=== PATIENT | male | born 1950 | race Caucasian/White ===

== ENCOUNTER → 2016-08-26 | Outpatient (CLI) | payer OTHER ==
[~2016-08-26] VITALS: Ht 180.3 cm; Wt 117.0 kg
[~2016-08-26] MED LIST: ATOR1TAB18 PO; METF500T PO; NS 1,000 ML IV SCH; PROPOFOL 200 MG/20 ML VIAL As Ordered ONE; TYLE650T35 PO
--- NOTE | 2016-08-26 14:15 | ROOR ---
Patient Name: Jordy Pulido Procedure Date: 08/26/2016 1:45 PM Date of : 1950 Age: 65 Room: [facility] Gender: Male Note Status: Finalized Procedure: Colonoscopy to Cecum + Cold Snare Polypectomy + Hemoclips Indications: High risk colon cancer surveillance: Personal history of colonic polyps, Last colonoscopy: 2010 Providers: Chirag Root MD Referring MD: GERALD SUBRAMANIAN MD Requesting Provider: Medicines: Monitored Anesthesia Care Complications: No immediate complications. Procedure: Pre-Anesthesia Assessment: - The heart rate, respiratory rate, oxygen saturations, blood pressure, adequacy of pulmonary ventilation, and response to care were monitored throughout the procedure. The Colonoscope was introduced through the anus and advanced to the cecum, identified by appendiceal orifice and ileocecal valve. The colonoscopy was performed without difficulty. The patient tolerated the procedure well. The quality of the bowel preparation was good. Findings: The perianal and digital rectal examinations were normal. Non-bleeding internal hemorrhoids were found during retroflexion. The hemorrhoids were mild, small and Grade I (internal hemorrhoids that do not prolapse). Scattered small-mouthed diverticula were found in the recto-sigmoid colon, in the sigmoid colon and in the descending colon. A medium polyp was found in the mid ascending colon. The polyp was sessile. The polyp was removed with a cold snare. Resection and retrieval were complete. To prevent bleeding after the polypectomy, three hemostatic clips were successfully placed (MR conditional). There was no bleeding at the end of the procedure. The exam was otherwise without abnormality on direct and retroflexion views. Impression: - Non-bleeding internal hemorrhoids. - Diverticulosis in the recto-sigmoid colon, in the sigmoid colon and in the descending colon. - One medium polyp in the mid ascending colon, removed with a cold snare. Resected and retrieved. Clips (MR conditional) were placed. - The examination was otherwise normal on direct and retroflexion views. - The exam was otherwise normal to the cecum. Recommendation: - Patient has a contact number available for emergencies. The signs and symptoms of potential delayed complications were discussed with the patient. Return to normal activities tomorrow. Written discharge instructions were provided to the patient. - High fiber diet. - Discharge patient to home. - Continue present medications. - Await pathology results. - Telephone GI clinic for pathology results in 1 week. - Repeat colonoscopy for surveillance based on pathology results. - Return to referring physician. - The findings and recommendations were discussed with the patient's family. Chirag Root MD Chirag Root MD 08/26/2016 2:15:09 PM This report has been signed electronically. Number of Addenda: 0 Note Initiated On: 08/26/2016 1:45 PM Estimated Blood Loss: Estimated blood loss: none.
[2016-08-26 14:40] VITALS: BP 140/70
== END | disposition home or self-care (01) ==
LOC: M OPP 12:35
PROVIDERS: ATTEND Internal Medicine Gastroenterology
DX: Z12.11 Encounter for screening for malignant neoplasm of colon (principal); K64.0 First degree hemorrhoids; K57.30 Diverticulosis of large intestine without perforation or abscess without bleeding; D12.2 Benign neoplasm of ascending colon; I10 Essential (primary) hypertension; G98.8 Other disorders of nervous system; Z79.84 Long term (current) use of oral hypoglycemic drugs; Z79.899 Other long term (current) drug therapy

== ENCOUNTER → 2017-03-25 | Outpatient (REF) | payer OTHER ==
[~2017-03-25] MED LIST changes: -ATOR1TAB18 PO; +ATOR80TA59 PO; -METF500T PO; +METF500T13 PO; -NS 1,000 ML IV SCH; -PROPOFOL 200 MG/20 ML VIAL As Ordered ONE
[2017-03-25 11:37] LABS: ALBUMIN/GLOBULIN RATIO 1.25 (1.00-1.93); ALKALINE PHOSPHATASE 101 U/L (45-117); ALT/SGPT 56 U/L (12-78); ANION GAP 7 MEQ/L (8-16); AST/SGOT 26 U/L (15-37); BILIRUBIN,TOTAL 0.8 MG/DL (0.2-1.0); BLOOD UREA NITROGEN 15 MG/DL (7-18); CALCIUM LEVEL 8.4 MG/DL (8.8-10.2); CARBON DIOXIDE LEVEL 26 MEQ/L (21-32); CHLORIDE LEVEL 106 MEQ/L (98-107); CHOLESTEROL LEVEL 193 MG/DL (<200); CREATININE FOR GFR 0.92 MG/DL (0.70-1.30); GLOMERULAR FILTRATION RATE > 60.0 (>49); GLUCOSE, FASTING 118 MG/DL (80-110); POTASSIUM SERUM 4.3 MEQ/L (3.5-5.1); SODIUM LEVEL 139 MEQ/L (136-145); TOTAL PROTEIN 7.2 GM/DL (6.4-8.2); TRIGLYCERIDES LEVEL 322 MG/DL (<150)
[2017-03-25 11:46] LABS: ERYTHROCYTE SEDIMENTATION RATE 3 mm/hr (0-20)
[2017-03-25 16:40] LABS: BASO # 0.1 K/mm3 (0.0-0.2); BASO % 1.2 % (0.0-1.0); EOS # 0.2 K/mm3 (0.0-0.50); EOS % 2.7 % (0.0-3.0); LARGE UNSTAINED CELL # 0.2 K/mm3 (0.0-0.4); LARGE UNSTAINED CELL % 2.8 % (0.0-4.0); LYMPH % 33.1 % (24.0-44.0); MEAN CORPUSCULAR HGB CONC 35.6 g/dl (32.0-36.5); MEAN CORPUSCULAR VOLUME 89.7 fl (80.0-96.0); MONO # 0.6 K/mm3 (0.0-0.8); MONO % 10.3 % (0.0-5.0); NEUTROPHILS # 2.8 K/mm3 (1.8-7.7); NEUTROPHILS % 49.9 % (36.0-66.0); PLATELET COUNT, AUTOMATED 142 k/mm3 (150-450); RED CELL DISTRIBUTION WIDTH 12.8 % (11.5-14.5); WHITE BLOOD COUNT 5.6 K/mm3 (4.0-10.0)
== END ==
LOC: M LABDRAW1 10:52
PROVIDERS: ATTEND Emergency Medicine
DX: M15.0 Primary generalized (osteo)arthritis (principal); R73.01 Impaired fasting glucose; E78.2 Mixed hyperlipidemia; E11.9 Type 2 diabetes mellitus without complications; I67.89 Other cerebrovascular disease

== ENCOUNTER → 2017-12-04 | Outpatient (CLI) | payer OTHER ==
[2017-12-04 06:58] LABS: BASO # 0.1 10^3/uL (0.0-0.2); BASO % 1.1 % (0.0-1.0); EOS # 0.2 10^3/uL (0.0-0.50); EOS % 2.7 % (0.0-3.0); HEMOGLOBIN 16.3 g/dl (13.5-17.5); IMMATURE GRANULOCYTE % 0.3 % (0-3.0); LYMPH # 2.3 10^3/uL (1.5-4.5); LYMPH % 33.2 % (24.0-44.0); MEAN CORPUSCULAR HEMOGLOBIN 31.1 pg (27.0-33.0); MEAN CORPUSCULAR HGB CONC 36.2 g/dl (32.0-36.5); MEAN CORPUSCULAR VOLUME 85.9 fl (80.0-96.0); MONO # 0.8 10^3/uL (0.0-0.8); MONO % 11.1 % (0.0-5.0); NEUTROPHILS # 3.6 10^3/uL (1.8-7.7); NEUTROPHILS % 51.6 % (36.0-66.0); PLATELET COUNT, AUTOMATED 157 10^3/uL (150-450); RED BLOOD COUNT 5.24 10^6/uL (4.30-6.10); RED CELL DISTRIBUTION WIDTH 12.2 % (11.5-14.5)
[2017-12-04 07:28] LABS: ALBUMIN 4.2 GM/DL (3.2-5.2); ALBUMIN/GLOBULIN RATIO 1.35 (1.00-1.93); ALKALINE PHOSPHATASE 84 U/L (45-117); ALT/SGPT 57 U/L (12-78); ANION GAP 8 MEQ/L (8-16); AST/SGOT 29 U/L (7-37); BLOOD UREA NITROGEN 13 MG/DL (7-18); CALCIUM LEVEL 8.5 MG/DL (8.8-10.2); CARBON DIOXIDE LEVEL 24 MEQ/L (21-32); CHLORIDE LEVEL 106 MEQ/L (98-107); CHOLESTEROL LEVEL 199 MG/DL (<200); CHOLESTEROL RISK RATIO 5.685 (<5); CREATININE FOR GFR 1.01 MG/DL (0.70-1.30); GLOMERULAR FILTRATION RATE > 60.0 (>49); GLUCOSE, FASTING 114 MG/DL (70-100); HDL CHOLESTEROL 35 MG/DL (>40); LDL CHOLESTEROL 138.6 MG/DL (<100); NON-HDL-C 164 MG/DL; POTASSIUM SERUM 3.9 MEQ/L (3.5-5.1); SODIUM LEVEL 138 MEQ/L (136-145); TOTAL PROTEIN 7.3 GM/DL (6.4-8.2); TRIGLYCERIDES LEVEL 127 MG/DL (<150)
[2017-12-04 07:37] LABS: MALB URINE SIEMENS 13.7 MG/L; MAU/CREAT RATIO 10.4 MCG/MG (0.0-30.0)
[2017-12-04 09:38] LABS: ESTIMATED AVERAGE GLUCOSE 137 MG/DL (60-110); HEMOGLOBIN A1c 6.4 %
== END ==
LOC: M LAB 06:09
DX: E11.9 Type 2 diabetes mellitus without complications (principal); E78.2 Mixed hyperlipidemia; I67.89 Other cerebrovascular disease
CPT/HCPCS: 80053

== ENCOUNTER 2018-07-04 09:14 | Emergency (ER) | payer MEDICARE, OTHER | END 2018-07-04 10:01 | disposition home or self-care (01) | LOC: M ED 09:14 | DX: M25.512 Pain in left shoulder (principal); I10 Essential (primary) hypertension; Z86.73 Personal history of transient ischemic attack (TIA), and cerebral infarction without residual deficits; Z79.01 Long term (current) use of anticoagulants; Z79.899 Other long term (current) drug therapy; Z79.84 Long term (current) use of oral hypoglycemic drugs | CPT/HCPCS: 99283 ==

== ENCOUNTER → 2018-07-08 | Outpatient (CLI) | payer MEDICARE, OTHER ==
[2018-07-08 09:26] LABS: BASO # 0.1 10^3/uL (0.0-0.2); BASO % 1.1 % (0.0-1.0); EOS # 0.2 10^3/uL (0.0-0.50); EOS % 2.6 % (0.0-3.0); HEMATOCRIT 41.4 % (42.0-52.0); HEMOGLOBIN 14.2 g/dl (13.5-17.5); IMMATURE GRANULOCYTE % 0.4 % (0-3.0); LYMPH # 1.6 10^3/uL (1.5-4.5); LYMPH % 22.4 % (24.0-44.0); MEAN CORPUSCULAR HEMOGLOBIN 30.8 pg (27.0-33.0); MEAN CORPUSCULAR HGB CONC 34.3 g/dl (32.0-36.5); MEAN CORPUSCULAR VOLUME 89.8 fl (80.0-96.0); MONO # 0.7 10^3/uL (0.0-0.8); MONO % 9.5 % (0.0-5.0); NEUTROPHILS # 4.7 10^3/uL (1.8-7.7); PLATELET COUNT, AUTOMATED 189 10^3/uL (150-450); RED BLOOD COUNT 4.61 10^6/uL (4.30-6.10); RED CELL DISTRIBUTION WIDTH 12.2 % (11.5-14.5); WHITE BLOOD COUNT 7.3 10^3/uL (4.0-10.0)
[2018-07-08 10:00] LABS: MALB URINE SIEMENS 11.4 MG/L; MAU/CREAT RATIO 6.8 MCG/MG (0.0-30.0)
[2018-07-08 10:10] LABS: ESTIMATED AVERAGE GLUCOSE 137 MG/DL (60-110); HEMOGLOBIN A1c 6.4 %
[2018-07-08 10:17] LABS: ALBUMIN/GLOBULIN RATIO 1.29 (1.00-1.93); ALKALINE PHOSPHATASE 61 U/L (45-117); ALT/SGPT 44 U/L (12-78); ANION GAP 6 MEQ/L (8-16); AST/SGOT 21 U/L (7-37); BILIRUBIN,TOTAL 0.9 MG/DL (0.2-1.0); BLOOD UREA NITROGEN 13 MG/DL (7-18); CALCIUM LEVEL 8.8 MG/DL (8.8-10.2); CARBON DIOXIDE LEVEL 28 MEQ/L (21-32); CHLORIDE LEVEL 104 MEQ/L (98-107); CREATININE FOR GFR 0.92 MG/DL (0.70-1.30); GLOMERULAR FILTRATION RATE > 60.0 (>49); GLUCOSE, FASTING 131 MG/DL (70-100); POTASSIUM SERUM 4.2 MEQ/L (3.5-5.1); PROSTATIC SPECIFIC AG MONITOR 2.5 NG/ML (< 4.0); SODIUM LEVEL 138 MEQ/L (136-145); TOTAL PROTEIN 7.1 GM/DL (6.4-8.2)
== END ==
LOC: M LAB 08:48
DX: E11.69 Type 2 diabetes mellitus with other specified complication (principal); N40.1 Benign prostatic hyperplasia with lower urinary tract symptoms
CPT/HCPCS: 80053

== ENCOUNTER → 2020-02-03 | Outpatient (CLI) | payer MEDICARE, OTHER ==
[~2020-02-03] MED LIST changes: +ACET1TAB37 PO; +ACET650T61 PO; +FLOM0.4C39 PO; +HYDR-3715 PO; +LOSA50TA88 PO; +PLAV1TAB2 PO; -TYLE650T35 PO
[2020-02-03 10:50] LABS: HEMOGLOBIN A1c 6.3 %
[2020-02-03 10:52] LABS: ALBUMIN 4.1 GM/DL (3.2-5.2); ALT/SGPT 42 U/L (12-78); BLOOD UREA NITROGEN 15 MG/DL (7-18); CALCIUM LEVEL 8.9 MG/DL (8.8-10.2); CARBON DIOXIDE LEVEL 26 MEQ/L (21-32); CHLORIDE LEVEL 104 MEQ/L (98-107); CHOLESTEROL LEVEL 181 MG/DL (<200); CHOLESTEROL RISK RATIO 4.891 (<5); CREATININE FOR GFR 0.84 MG/DL (0.70-1.30); GLOMERULAR FILTRATION RATE > 60.0 (>49); GLUCOSE, FASTING 112 MG/DL (70-100); HDL CHOLESTEROL 37 MG/DL (>40); LDL CHOLESTEROL 100 MG/DL (<100); NON-HDL-C 144 MG/DL; SODIUM LEVEL 137 MEQ/L (136-145); TRIGLYCERIDES LEVEL 220 MG/DL (<150)
[2020-02-03 10:58] LABS: MALB URINE SIEMENS 13.4 MG/L; MAU/CREAT RATIO 8.6 MCG/MG (0.0-30.0)
[2020-02-04 18:08] LABS: Lyme Disease IgG/IgM Antibodie <0.91 ISR (0.00-0.90); Lyme Disease IgM Ab Quantitati <0.80 index (0.00-0.79); PSA TOTAL 1.5 ng/mL (0.0-4.0)
== END ==
LOC: M LAB 09:08
PROVIDERS: ATTEND Physician Assistant Medical
DX: E11.69 Type 2 diabetes mellitus with other specified complication (principal); N40.1 Benign prostatic hyperplasia with lower urinary tract symptoms; S20.469A Insect bite (nonvenomous) of unspecified back wall of thorax, initial encounter; W57.XXXA Bitten or stung by nonvenomous insect and other nonvenomous arthropods, initial encounter; Y92.9 Unspecified place or not applicable

== ENCOUNTER → 2020-02-25 | Outpatient (CLI) | payer MEDICARE, OTHER | LOC: M LABSMTC 11:43 | PROVIDERS: ATTEND Anesthesiology | DX: Z01.818 Encounter for other preprocedural examination (principal); Z11.59 Encounter for screening for other viral diseases | CPT/HCPCS: C9803; U0003 ==

== ENCOUNTER 2020-02-28 08:53 | Day surgery (SDC) | payer MEDICARE, OTHER ==
[~2020-02-28] VITALS: Ht 180.3 cm; Wt 110.1 kg
[~2020-02-28 08:53] MED LIST changes: -ACET650T61 PO; +LIDOCAINE 1% MDV 20ML VIAL SQ PRN; +LIDOCAINE 2% 100MG/5ML SDV (FOR ANES.) As Ordered ONE; +LR 1,000 ML IV ONE; +MIDAZOLAM INJ 2MG/2ML VIAL (J2250 PER 1MG) As Ordered ONE; +ONDANSETRON 4MG/2ML VIAL As Ordered ONE; +ROCURONIUM BROMIDE 50 MG/5 ML VIAL As Ordered ONE; +TYLE650T35 PO; +ceFAZolin SOD 2 GM in IV 1 EA IV ONE; +dexameTHASONE 4 MG/ML 1ML VIAL (J1100 PER 1MG) As Ordered ONE; +fentaNYL 250 MCG/5 ML INJECTION (J3010) As Ordered ONE; +propofoL 200 MG/20 ML VIAL As Ordered ONE
[2020-02-28] MEDS ORDERED: BUPIVACAINE HCL 0.25% 30ML VIAL As Ordered ONE (15:13)
[2020-02-28] MEDS ORDERED: LIDOCAINE 1% SDV 30ML VIAL As Ordered ONE (15:13)
[2020-02-28] MEDS ORDERED: ACETAMINOPHEN 1000MG 100ML IV BTL (OFIRMEV) (J0131 PER 10MG) As Ordered ONE (16:05)
[2020-02-28] MEDS ORDERED: ROCURONIUM BROMIDE 50 MG/5 ML VIAL As Ordered ONE ×2 (16:14→17:57)
[2020-02-28] MEDS ORDERED: ePHEDrine SULFATE 25 MG/5 ML(5MG/ML) SYRINGE As Ordered ONE (16:15)
[2020-02-28] MEDS ORDERED: SUGAMMADEX SODIUM 500 MG/5 ML VIAL (BRIDION) As Ordered ONE (16:26)
[2020-02-28] MEDS ORDERED: fentaNYL 100 MCG/2 ML INJECTION (J3010) IV PRN (19:00)
[2020-02-28] MEDS ORDERED: METOCLOPRAMIDE INJ 10MG/2ML VIAL (J2765 PER 1) IV PRN (19:00)
[2020-02-28] MEDS ORDERED: KETOROLAC 30 MG/ML 1ML VIAL IV PRN (19:00)
[2020-02-28] MEDS ORDERED: NORCO, ANEXSIA 5/325MG TABLET (HYDROcodone/ACETAMINOPHEN) PO PRN (19:00)
[2020-02-28] MEDS ORDERED: LR 1,000 ML IV SCH (19:00)
[2020-02-28] MEDS ORDERED: MEPERIDINE INJ 25 MG/ML VIAL (J2175) IV PRN (19:00)
[2020-02-28] MEDS ORDERED: oxyCODONE 5MG TAB PO PRN (19:00)
[2020-02-28] MEDS ORDERED: ONDANSETRON 4MG/2ML VIAL IV PRN (19:00)
[2020-02-28 20:45] VITALS: BP 122/74
--- NOTE | 2020-02-29 10:56 | ROOPDOC ---
[facility] Report Of Operation Report of Operation DATE OF PROCEDURE: 02/28/20 PREPROCEDURE DIAGNOSES: Right inguinal scrotal hernia. POSTPROCEDURE DIAGNOSES: Right indirect hernia, inguinal hernia extending to the scrotum. PROCEDURE: Robotic-assisted laparoscopic repair of right inguinal scrotal hernia (rTAPP). SURGEON: Javier Chiu MD BRANCH MANAGER: ANESTHESIA: General Anesthesia. ESTIMATED BLOOD LOSS: Approximately 20 mL. COMPLICATIONS: none. REMARKS: large and bulky right indirect inguinal hernia with bulky cord lipoma reduced from the inguinal canal. Initially containing the cecum and appendix.. DRAIN: 7 flat PARVIZ drain left coursing through the inguinal canal. DESCRIPTION OF PROCEDURE: Patient received 2 g of Ancef IV preoperatively for wound prophylaxis. Patient was brought to the operating room, placed supine on the operating table. Compression boots placed in both lower extremities for DVT prophylaxis. After adequate general anesthesia started, a brower catheter to decompress his urinary bladder was placed without difficulty. His abdomen and groin/pelvic area then prepped and draped in the usual sterile fashion. We paused for a surgical timeout using both pre-incision safety checklist to verify correct patient, procedure site (marked preop) and additional clinical information prior to beginning the procedure. Externally he has a moderate size right inguinal hernia extending to the scrotum. This was reduced after induction of anesthesia. Intra-abdominal access obtained through Veress needle technique roughly about 3 cm above the umbilicus slightly to the right side.. A Veress needle is inserted on a controlled fashion. CO2 insufflation started to pressure 15 mmHg. Using the same incision a 8 mm robotic optical trocar was then placed under direct vision of laparoscope. The insertion site was inspected for injury and none was found. Patient was then positioned on 8 Trendelenburg position. 2 working ports placed to the right and left of the umbilicus along the same line. The da Bernadine Xi robot tower was then positioned in place and the trochars docked onto the robot. I used a 0 8 mm camera, forced bipolar forceps attached to a bipolar cord and laparoscopic robert attached to a monopolar cord on my right hand. I then unscrubbed and took control of the camera and the laparoscopic instruments at the surgeon's console. On diagnostic laparoscopy, part of the cecum is seen coursing through the internal ring which was further reduced by external compression. Is moderate size internal ring defect. Visible portions of the bowel. Within normal. The peritoneum was opened up about 7 cm above the superior edge of the internal inguinal ring starting at the medial umbilical ligament (opened up) proceeding laterally towards the level of the anterior superior iliac spine. The peritoneum and part of the transversalis medially was then dissected mostly bluntly away from the abdominal wall to open up the preperitoneal space. This was extended to the space of Retzius between the bladder and the abdominal wall and pubic tubercle to expose the arc of the pubic tubercle as well as the Jimbo's ligament. Medial dissection was performed roughly about a centimeter or so beyond the symphysis pubis. This was extended inferiorly about a cm beyond the pubic arch. The preperitoneal dissection was extended partly superiorly but mostly inferiorly towards the iliopubic tract laterally and beyond the Jimbo's ligament and pubic tubercle inferiorly. The preperitoneal dissection then continued laterally to the space of Bogros and the peritoneal opening further extended. The lower flap of the peritoneum was adequately mobilized away from the preperitoneal tissue. On approaching the inguinal ring, patient is expected has a large redundant sac. Bulky cord lipoma was found and reduced back into the preperitoneal space. Multiple fibrous attachments of the sac was divided. The vas deferens and testicular vessels were identified while dissecting the sac. Due to the bulkiness of the cord lipoma this was occupying a lot of the dissected preperitoneal space once this was dissected out of the inguinal canal making visualization difficult. I spent quite some time in developing an dissecting the hernia sac. Eventually the edge of the hernia sac was found and this was freed up from surrounding structures including that of the vas deferens and testicular vessels. The testicular vessels remained largely in place while the vas deferens was dissected free of the fibrous attachments to the hernia sac. I further develop the edge of the hernia sac inferiorly to make sure have adequate space for the inferior edge of the mesh to prevent this from clam shelling. The vas deferens was parietalized to gain further distance medially and inferiorly. I chose a 10 x 15 cm Parietex ProGrip self fixating mesh (anatomic). This was folded with the center of the mesh marked for positioning. This was then de livered intra-abdominally through one of the trochars. In a controlled fashion this was positioned into the preperitoneal space with the medial side past the symphisis pubis and the previously marked center of the mesh abutting the inferior epigastric vessels/internal ring. The bottom of the mesh was passed the pubic arch. The mesh was opened up and flattened. The edges of some mesh laterally was stopped underneath the peritoneum. The peritoneal flap was then closed with 20 V-block starting laterally going medially. As I am expecting a good amount of postoperative swelling and seroma, I scrubbed back in to place a 5 mm port over the right lower quadrant area and through this I threaded a 7 flat PARVIZ drain to go anterior to the mesh through to the inguinal canal. Once this was done the peritoneal flap was closed with a running 20V LOC. The abdomen was then deflated. All ports were removed. The robot was undocked. I scrubbed back in. The incisions were closed with 4-0 Monocryl in subcuticular fashion. A stay suture using 3-0 silk was placed to secure the drain. Dermabond was used for wound coverage. The patient was then properly awakened, extubated. His Brower catheter was removed. No bleeding noted in the Brower bag. He was brought to the recovery room stable. All counts of sponges and instruments were verified correct. JAVIER CHIU MD Feb 29, 2020 10:56
== END 2020-02-28 21:00 | disposition home or self-care (01) ==
LOC: M SDC 08:53
PROVIDERS: ATTEND Surgery
DX: K40.90 Unilateral inguinal hernia, without obstruction or gangrene, not specified as recurrent (principal); I10 Essential (primary) hypertension; E78.5 Hyperlipidemia, unspecified; R73.03 Prediabetes; F41.9 Anxiety disorder, unspecified; Z86.73 Personal history of transient ischemic attack (TIA), and cerebral infarction without residual deficits; Z79.01 Long term (current) use of anticoagulants; Z79.899 Other long term (current) drug therapy
CPT/HCPCS: 49650; C1781; J0131; J0690; J1100; J2250; J2405; J3010

== ENCOUNTER → 2020-05-13 | Outpatient (CLI) | payer MEDICARE, OTHER ==
[~2020-05-13] MED LIST changes: +ACET650T61 PO; -LIDOCAINE 1% MDV 20ML VIAL SQ PRN; -LIDOCAINE 2% 100MG/5ML SDV (FOR ANES.) As Ordered ONE; -LR 1,000 ML IV ONE; -MIDAZOLAM INJ 2MG/2ML VIAL (J2250 PER 1MG) As Ordered ONE; -ONDANSETRON 4MG/2ML VIAL As Ordered ONE; -ROCURONIUM BROMIDE 50 MG/5 ML VIAL As Ordered ONE; -TYLE650T35 PO; -ceFAZolin SOD 2 GM in IV 1 EA IV ONE; -dexameTHASONE 4 MG/ML 1ML VIAL (J1100 PER 1MG) As Ordered ONE; -fentaNYL 250 MCG/5 ML INJECTION (J3010) As Ordered ONE; -propofoL 200 MG/20 ML VIAL As Ordered ONE
== END ==
LOC: M LABSMTC 07:51
PROVIDERS: ATTEND Anesthesiology
DX: Z01.812 Encounter for preprocedural laboratory examination (principal); Z20.828 Contact with and (suspected) exposure to other viral communicable diseases
CPT/HCPCS: C9803; U0003

== ENCOUNTER 2020-05-18 07:40 | Day surgery (SDC) | payer MEDICARE, OTHER ==
[~2020-05-18] VITALS: Ht 180.3 cm; Wt 112.9 kg
[~2020-05-18 07:40] MED LIST changes: +BALANCED SALT IRRIGATION SOLUTION 500ML BAG (FOR OR EYE MACHINE) As Ordered ONE; +BSS IRR 500ML/OMIDRIA 4ML IRR BAG (OR ONLY) (J1097 PER ML) As Ordered ONE; +CEFUROXIME 1MG/0.1ML INTRACAMERAL INJ As Ordered ONE; +DUOVISC (0.50ML VISCOAT/0.55ML PROVISC) OPHTH KIT As Ordered ONE; +OFLOXACIN 0.3 % (OCUFLOX) OPTH SOL 5ML OD ONE; +PHENYLEPHRINE 2.5% OPHTH SOL 2ML OD ONE; +POVIDONE-IODINE 5% OPHTH PREP SOL 30ML As Ordered ONE; +PROPARACAINE 0.5% OPHTH SOL 15ML OD ONE; +TROPICAMIDE 1% OPHTH SOLN 2ML OD ONE
[2020-05-18] MEDS ORDERED: MIDAZOLAM INJ 2MG/2ML VIAL (J2250 PER 1MG) As Ordered ONE (09:37)
[2020-05-18] MEDS ORDERED: fentaNYL 100 MCG/2 ML INJECTION (J3010) As Ordered ONE (09:37)
[2020-05-18 10:05] VITALS: BP 135/79
== END 2020-05-18 10:50 | disposition home or self-care (01) ==
LOC: M SDC 07:40
PROVIDERS: ATTEND Ophthalmology
DX: H25.11 Age-related nuclear cataract, right eye (principal); I10 Essential (primary) hypertension; E78.5 Hyperlipidemia, unspecified; F41.9 Anxiety disorder, unspecified; R73.03 Prediabetes; Z79.01 Long term (current) use of anticoagulants; Z86.73 Personal history of transient ischemic attack (TIA), and cerebral infarction without residual deficits; Z79.899 Other long term (current) drug therapy
CPT/HCPCS: 66984; J1097; J2250; J3010; V2632

== ENCOUNTER → 2020-05-27 | Outpatient (CLI) | payer MEDICARE, OTHER ==
[~2020-05-27] MED LIST changes: -BALANCED SALT IRRIGATION SOLUTION 500ML BAG (FOR OR EYE MACHINE) As Ordered ONE; -BSS IRR 500ML/OMIDRIA 4ML IRR BAG (OR ONLY) (J1097 PER ML) As Ordered ONE; -CEFUROXIME 1MG/0.1ML INTRACAMERAL INJ As Ordered ONE; -DUOVISC (0.50ML VISCOAT/0.55ML PROVISC) OPHTH KIT As Ordered ONE; -OFLOXACIN 0.3 % (OCUFLOX) OPTH SOL 5ML OD ONE; -PHENYLEPHRINE 2.5% OPHTH SOL 2ML OD ONE; -POVIDONE-IODINE 5% OPHTH PREP SOL 30ML As Ordered ONE; -PROPARACAINE 0.5% OPHTH SOL 15ML OD ONE; -TROPICAMIDE 1% OPHTH SOLN 2ML OD ONE
== END ==
LOC: M LABSMTC 08:08
PROVIDERS: ATTEND Anesthesiology
DX: Z01.812 Encounter for preprocedural laboratory examination (principal); Z20.828 Contact with and (suspected) exposure to other viral communicable diseases
CPT/HCPCS: C9803; U0003

== ENCOUNTER 2020-06-01 06:16 | Day surgery (SDC) | payer MEDICARE, OTHER ==
[~2020-06-01] VITALS: Ht 180.3 cm; Wt 114.0 kg
[2020-06-01] MEDS ORDERED: POVIDONE-IODINE 5% OPHTH PREP SOL 30ML As Ordered ONE (06:36)
[2020-06-01] MEDS ORDERED: DUOVISC (0.50ML VISCOAT/0.55ML PROVISC) OPHTH KIT As Ordered ONE (06:36)
[2020-06-01] MEDS ORDERED: CEFUROXIME 1MG/0.1ML INTRACAMERAL INJ As Ordered ONE (06:37)
[2020-06-01] MEDS ORDERED: BSS IRR 500ML/OMIDRIA 4ML IRR BAG (OR ONLY) (J1097 PER ML) As Ordered ONE (06:49)
[2020-06-01] MEDS ORDERED: OFLOXACIN 0.3 % (OCUFLOX) OPTH SOL 5ML OS ONE (07:00)
[2020-06-01] MEDS ORDERED: TROPICAMIDE 1% OPHTH SOLN 2ML OS ONE (07:00)
[2020-06-01] MEDS ORDERED: PHENYLEPHRINE 2.5% OPHTH SOL 2ML OS ONE (07:00)
[2020-06-01] MEDS ORDERED: PROPARACAINE 0.5% OPHTH SOL 15ML OS ONE (07:00)
[2020-06-01] MEDS ORDERED: MIDAZOLAM INJ 2MG/2ML VIAL (J2250 PER 1MG) As Ordered ONE (07:03)
[2020-06-01] MEDS ORDERED: fentaNYL 100 MCG/2 ML INJECTION (J3010) As Ordered ONE (07:03)
[2020-06-01 08:00] VITALS: BP 123/73
== END 2020-06-01 08:52 | disposition home or self-care (01) ==
LOC: M SDC 06:16
PROVIDERS: ATTEND Ophthalmology
DX: H25.12 Age-related nuclear cataract, left eye (principal); I10 Essential (primary) hypertension; E78.5 Hyperlipidemia, unspecified; R73.03 Prediabetes; Z86.73 Personal history of transient ischemic attack (TIA), and cerebral infarction without residual deficits; Z79.899 Other long term (current) drug therapy; Z79.02 Long term (current) use of antithrombotics/antiplatelets
CPT/HCPCS: 66984; J1097; J2250; J3010; V2632

== ENCOUNTER → 2020-08-14 | Outpatient (CLI) | payer SELFPAY | LOC: M LABSMTC 13:43 | PROVIDERS: ATTEND Pediatrics | DX: Z20.828 Contact with and (suspected) exposure to other viral communicable diseases (principal) ==

== ENCOUNTER → 2021-02-07 | Outpatient (CLI) | payer MEDICARE, OTHER ==
[2021-02-07 09:49] LABS: BASO # 0.1 10^3/uL (0.0-0.2); BASO % 1.1 % (0.0-1.0); EOS # 0.4 10^3/uL (0.0-0.5); EOS % 5.7 % (0.0-3.0); HEMOGLOBIN 14.3 g/dl (13.5-17.5); MEAN CORPUSCULAR HEMOGLOBIN 30.6 pg (27.0-33.0); MEAN CORPUSCULAR HGB CONC 33.3 g/dl (32.0-36.5); MEAN CORPUSCULAR VOLUME 91.9 fl (80.0-96.0); MONO # 0.8 10^3/uL (0.0-0.8); MONO % 10.7 % (2.0-8.0); NEUTROPHILS # 4.2 10^3/uL (1.5-8.5); PLATELET COUNT, AUTOMATED 168 10^3/uL (150-450); RED BLOOD COUNT 4.68 10^6/uL (4.30-6.10); WHITE BLOOD COUNT 7.5 10^3/uL (4.0-10.0)
[2021-02-07 10:21] LABS: ALBUMIN 4.2 GM/DL (3.2-5.2); ALT/SGPT 63 U/L (12-78); BILIRUBIN,TOTAL 0.6 MG/DL (0.2-1.0); BLOOD UREA NITROGEN 13 MG/DL (7-18); CALCIUM LEVEL 8.4 MG/DL (8.8-10.2); CARBON DIOXIDE LEVEL 28 MEQ/L (21-32); CHLORIDE LEVEL 106 MEQ/L (98-107); CHOLESTEROL LEVEL 230 MG/DL (<200); CHOLESTEROL RISK RATIO 6.216 (<5); CREATININE FOR GFR 0.84 MG/DL (0.70-1.30); GLOMERULAR FILTRATION RATE > 60.0 (>49); GLUCOSE, FASTING 118 MG/DL (70-100); HDL CHOLESTEROL 37 MG/DL (>40); LDL CHOLESTEROL 123 MG/DL (<100); NON-HDL-C 193 MG/DL; POTASSIUM SERUM 4.3 MEQ/L (3.5-5.1); SODIUM LEVEL 138 MEQ/L (136-145); TOTAL PROTEIN 7.3 GM/DL (6.4-8.2); TRIGLYCERIDES LEVEL 352 MG/DL (<150)
[2021-02-07 10:29] LABS: MALB URINE SIEMENS 19.2 MG/L; MAU/CREAT RATIO 12.8 MCG/MG (0.0-30.0)
== END ==
LOC: M LAB 08:31
PROVIDERS: ATTEND Family Medicine
DX: E11.69 Type 2 diabetes mellitus with other specified complication (principal); N40.1 Benign prostatic hyperplasia with lower urinary tract symptoms
CPT/HCPCS: 36415; 80053; 80061; 82043; 83036; 85025; G0103

== ENCOUNTER → 2021-09-10 | Outpatient (REF) ==
[~2021-09-10] MED LIST changes: +LOSA50TA28 PO; -LOSA50TA88 PO
== END ==
LOC: M LABSMTC 09:16
PROVIDERS: ATTEND Pediatrics
DX: Z11.52 Encounter for screening for COVID-19 (principal); Z20.822 Contact with and (suspected) exposure to COVID-19

== ENCOUNTER 2021-12-18 16:50 | Emergency (ER) | payer MEDICARE, OTHER ==
[~2021-12-18] VITALS: Ht 180.3 cm; Wt 111.9 kg
[2021-12-18] MEDS ORDERED: MOLN200C PO (17:10)
[2021-12-18] MEDS ORDERED: ISOVUE-370 76% 100ML VIAL As Ordered ONE (17:49)
[2021-12-18 17:52] LABS: BASO # 0.1 10^3/uL (0.0-0.2); EOS # 0.1 10^3/uL (0.0-0.5); EOS % 1.8 % (0.0-3.0); HEMATOCRIT 39.3 % (42.0-52.0); HEMOGLOBIN 13.5 g/dl (13.5-17.5); LYMPH # 1.3 10^3/uL (1.5-5.0); LYMPH % 17.4 % (24.0-44.0); MEAN CORPUSCULAR HEMOGLOBIN 31.1 pg (27.0-33.0); MEAN CORPUSCULAR HGB CONC 34.4 g/dl (32.0-36.5); MEAN CORPUSCULAR VOLUME 90.6 fl (80.0-96.0); MONO # 0.7 10^3/uL (0.0-0.8); MONO % 9.3 % (2.0-8.0); NEUTROPHILS # 5.3 10^3/uL (1.5-8.5); NEUTROPHILS % 69.8 % (36.0-66.0); PLATELET COUNT, AUTOMATED 152 10^3/uL (150-450); RED BLOOD COUNT 4.34 10^6/uL (4.30-6.10); WHITE BLOOD COUNT 7.6 10^3/uL (4.0-10.0)
[2021-12-18 18:08] LABS: INR 1.08; PROTHROMBIN TIME 14.4 SECONDS (12.7-14.5)
[2021-12-18 18:09] LABS: PARTIAL THROMBOPLASTIN TIME 28.6 SECONDS (25.9-37.0)
[2021-12-18 18:19] LABS: ALBUMIN 3.9 GM/DL (3.2-5.2); BILIRUBIN,DIRECT 0.2 MG/DL (0.0-0.2); BILIRUBIN,TOTAL 0.7 MG/DL (0.2-1.0); TOTAL PROTEIN 6.9 GM/DL (6.4-8.2)
[2021-12-18 18:21] LABS: CK-MB VALUE MASS < 1.0 NG/ML (<3.6); CPK CREATINE PHOSPHOKINASE 195 U/L (39-308); MB/CK RELATIVE INDEX 0.51 (< OR =4)
[2021-12-18 20:07] VITALS: BP 143/70
== END 2021-12-18 20:09 | disposition home or self-care (01) ==
LOC: EDBD 16:50 → M ED 16:50
DX: Z04.1 Encounter for examination and observation following transport accident (principal); I10 Essential (primary) hypertension; Z86.73 Personal history of transient ischemic attack (TIA), and cerebral infarction without residual deficits; Z79.899 Other long term (current) drug therapy; Z79.01 Long term (current) use of anticoagulants
CPT/HCPCS: 36415; 70450; 71260; 72125; 74177; 80047; 80076; 82150; 82550; 82553; 83605; 83690; 84484; 85025; 85610; 85730; 86850; 86900; 86901; 93041; 94760; 99285; Q9967

== ENCOUNTER → 2021-12-25 | Outpatient (CLI) | payer MEDICARE, OTHER ==
[~2021-12-25] MED LIST changes: +MOLN200C PO
[2021-12-25 15:58] LABS: BLOOD UREA NITROGEN 14 MG/DL (7-18); CALCIUM LEVEL 9.7 MG/DL (8.8-10.2); CARBON DIOXIDE LEVEL 26 MEQ/L (21-32); CHLORIDE LEVEL 105 MEQ/L (98-107); CREATININE FOR GFR 1.04 MG/DL (0.70-1.30); GLOMERULAR FILTRATION RATE > 60.0 (>42); GLUCOSE, FASTING 101 MG/DL (70-100); POTASSIUM SERUM 4.3 MEQ/L (3.5-5.1); SODIUM LEVEL 138 MEQ/L (136-145)
== END ==
LOC: M LAB 14:25
PROVIDERS: ATTEND Nurse Practitioner Family
DX: I10 Essential (primary) hypertension (principal)

== ENCOUNTER → 2021-12-26 | Outpatient (CLI) | payer MEDICARE, OTHER ==
[~2021-12-26] MED LIST changes: +GASTROGRAFIN SOLUTION 30ML (Q9963) ONE; +ISOVUE-370 76% 100ML VIAL ONE
== END ==
LOC: M PLAIMG 12:36
PROVIDERS: ATTEND Nurse Practitioner Family
DX: R10.31 Right lower quadrant pain (principal)
CPT/HCPCS: 74177; Q9963; Q9967

== ENCOUNTER → 2021-12-28 | Outpatient (CLI) | payer MEDICARE, OTHER ==
[~2021-12-28] MED LIST changes: -GASTROGRAFIN SOLUTION 30ML (Q9963) ONE; -ISOVUE-370 76% 100ML VIAL ONE
== END ==
LOC: M RAD 11:51
PROVIDERS: ATTEND Nurse Practitioner Family
DX: N28.1 Cyst of kidney, acquired (principal)

== ENCOUNTER → 2022-02-08 | Outpatient (CLI) | payer MEDICARE, OTHER ==
[2022-02-08 10:25] LABS: MALB URINE SIEMENS 10.2 MG/L; MAU/CREAT RATIO 7.1 MCG/MG (0.0-30.0)
== END ==
LOC: M LAB 09:08
PROVIDERS: ATTEND Nurse Practitioner Family
DX: E11.69 Type 2 diabetes mellitus with other specified complication (principal)

== ENCOUNTER → 2022-02-08 | Outpatient (CLI) | payer MEDICARE, OTHER ==
[2022-02-08 13:09] LABS: BASO # 0.1 10^3/uL (0.0-0.2); BASO % 1.2 % (0.0-1.0); EOS # 0.2 10^3/uL (0.0-0.5); EOS % 2.9 % (0.0-3.0); HEMATOCRIT 43.5 % (42.0-52.0); HEMOGLOBIN 14.6 g/dl (13.5-17.5); LYMPH # 1.9 10^3/uL (1.5-5.0); LYMPH % 37.2 % (24.0-44.0); MEAN CORPUSCULAR HGB CONC 33.6 g/dl (32.0-36.5); MEAN CORPUSCULAR VOLUME 92.4 fl (80.0-96.0); MONO # 0.5 10^3/uL (0.0-0.8); NEUTROPHILS # 2.5 10^3/uL (1.5-8.5); NEUTROPHILS % 48.3 % (36.0-66.0); PLATELET COUNT, AUTOMATED 158 10^3/uL (150-450); RED BLOOD COUNT 4.71 10^6/uL (4.30-6.10); WHITE BLOOD COUNT 5.2 10^3/uL (4.0-10.0)
[2022-02-08 13:28] LABS: HEMOGLOBIN A1c 5.8 %
[2022-02-08 13:56] LABS: ALT/SGPT 38 U/L (12-78); BILIRUBIN,TOTAL 1.1 MG/DL (0.2-1.0); BLOOD UREA NITROGEN 12 MG/DL (7-18); CALCIUM LEVEL 8.3 MG/DL (8.8-10.2); CARBON DIOXIDE LEVEL 25 MEQ/L (21-32); CHLORIDE LEVEL 104 MEQ/L (98-107); CHOLESTEROL LEVEL 159 MG/DL (<200); CHOLESTEROL RISK RATIO 3.613 (<5); CREATININE FOR GFR 0.87 MG/DL (0.70-1.30); GLOMERULAR FILTRATION RATE > 60.0 (>42); GLUCOSE, FASTING 104 MG/DL (70-100); HDL CHOLESTEROL 44 MG/DL (>40); LDL CHOLESTEROL 90 MG/DL (<100); NON-HDL-C 115 MG/DL; POTASSIUM SERUM 4.3 MEQ/L (3.5-5.1); SODIUM LEVEL 136 MEQ/L (136-145); TRIGLYCERIDES LEVEL 126 MG/DL (<150)
== END ==
LOC: M LAB 10:51
PROVIDERS: ATTEND Nurse Practitioner Family
DX: I10 Essential (primary) hypertension (principal); E11.69 Type 2 diabetes mellitus with other specified complication; N40.1 Benign prostatic hyperplasia with lower urinary tract symptoms

== ENCOUNTER → 2022-06-16 | Outpatient (CLI) | payer MEDICARE, OTHER ==
[~2022-06-16] MED LIST changes: +CLOP75TA99 PO; -PLAV1TAB2 PO
== END ==
LOC: M LABSMTC 09:35
PROVIDERS: ATTEND Anesthesiology
DX: Z01.812 Encounter for preprocedural laboratory examination (principal); Z20.822 Contact with and (suspected) exposure to COVID-19

== ENCOUNTER 2022-06-19 09:04 | Day surgery (SDC) | payer MEDICARE, OTHER ==
[~2022-06-19] VITALS: Ht 180.3 cm; Wt 106.0 kg
[~2022-06-19 09:04] MED LIST changes: +LIDOCAINE 2% 100MG/5ML SDV (FOR ANES.) As Ordered ONE; +NS 1,000 ML IV ONE; +propofoL 200 MG/20 ML VIAL As Ordered ONE
[2022-06-19 10:40] VITALS: BP 134/79
== END 2022-06-19 10:57 | disposition home or self-care (01) ==
LOC: M OPP 09:04
PROVIDERS: ATTEND Internal Medicine Gastroenterology
DX: Z12.11 Encounter for screening for malignant neoplasm of colon (principal); Z86.010 Personal history of colon polyps; D12.3 Benign neoplasm of transverse colon; K64.0 First degree hemorrhoids; K57.30 Diverticulosis of large intestine without perforation or abscess without bleeding; Z79.02 Long term (current) use of antithrombotics/antiplatelets; Z79.84 Long term (current) use of oral hypoglycemic drugs; Z79.899 Other long term (current) drug therapy; E78.00 Pure hypercholesterolemia, unspecified; I10 Essential (primary) hypertension; E11.9 Type 2 diabetes mellitus without complications; N40.0 Benign prostatic hyperplasia without lower urinary tract symptoms; Z86.73 Personal history of transient ischemic attack (TIA), and cerebral infarction without residual deficits

== ENCOUNTER → 2022-08-16 | Outpatient (CLI) | payer MEDICARE, OTHER ==
[~2022-08-16] MED LIST changes: -LIDOCAINE 2% 100MG/5ML SDV (FOR ANES.) As Ordered ONE; -NS 1,000 ML IV ONE; -propofoL 200 MG/20 ML VIAL As Ordered ONE
[2022-08-16 11:23] LABS: HEMOGLOBIN A1c 5.7 % (4.0-6.0)
== END ==
LOC: M LAB 10:09
PROVIDERS: ATTEND Nurse Practitioner Family
DX: E11.69 Type 2 diabetes mellitus with other specified complication (principal)

== ENCOUNTER → 2022-08-20 | Outpatient (CLI) | payer MEDICARE, OTHER ==
[2022-08-21 23:06] LABS: PSA TOTAL 1.9 ng/mL (0.0-4.0)
== END ==
LOC: M LAB 13:00
PROVIDERS: ATTEND Nurse Practitioner Family
DX: N40.1 Benign prostatic hyperplasia with lower urinary tract symptoms (principal)

== ENCOUNTER → 2022-09-19 | Outpatient (CLI) | payer MEDICARE, OTHER ==
[2022-09-19 15:46] LABS: BASO # 0.1 10^3/uL (0.0-0.2); BASO % 1.3 % (0.0-1.0); EOS # 0.1 10^3/uL (0.0-0.5); EOS % 2.1 % (0.0-3.0); HEMATOCRIT 43.3 % (42.0-52.0); HEMOGLOBIN 14.9 g/dl (13.5-17.5); LYMPH # 1.7 10^3/uL (1.5-5.0); LYMPH % 27.4 % (24.0-44.0); MEAN CORPUSCULAR HEMOGLOBIN 30.8 pg (27.0-33.0); MEAN CORPUSCULAR HGB CONC 34.4 g/dl (32.0-36.5); MEAN CORPUSCULAR VOLUME 89.5 fl (80.0-96.0); MONO # 0.6 10^3/uL (0.0-0.8); NEUTROPHILS # 3.7 10^3/uL (1.5-8.5); PLATELET COUNT, AUTOMATED 164 10^3/uL (150-450); RED BLOOD COUNT 4.84 10^6/uL (4.30-6.10); WHITE BLOOD COUNT 6.3 10^3/uL (4.0-10.0)
[2022-09-19 21:19] LABS: HEMOGLOBIN A1c 5.9 % (4.0-6.0)
[2022-09-19 23:11] LABS: FERRITIN 266.8 NG/ML (10.5-307.3); THYROID STIMULATING HORMONE 1.438 uIU/ML (0.55-4.78)
[2022-09-19 23:40] LABS: ALBUMIN 4.1 G/DL (3.2-5.2)
[2022-09-19 23:48] LABS: PERCENT SATURATION 14.9 % (19.7-50.0)
== END ==
LOC: M LAB 14:55
PROVIDERS: ATTEND Orthopaedic Surgery
DX: M17.11 Unilateral primary osteoarthritis, right knee (principal); M25.561 Pain in right knee; R53.1 Weakness; Z86.39 Personal history of other endocrine, nutritional and metabolic disease

== ENCOUNTER → 2022-10-04 | Outpatient (CLI) | payer MEDICARE, OTHER ==
[2022-10-04 09:57] LABS: APPEARANCE, URINE CLEAR (CLEAR); BACTERIA, URINE AUTO NEGATIVE (NEGATIVE); BILIRUBIN, URINE AUTO NEGATIVE (NEGATIVE); BLOOD, URINE BLOOD NEGATIVE (NEGATIVE); COLOR, URINE YELLOW (YELLOW); GLUCOSE, URINE (UA) AUTO NEGATIVE (NEGATIVE); KETONE, URINE AUTO NEGATIVE (NEGATIVE); LEUKOCYTE ESTERASE, URINE AUTO NEGATIVE (NEGATIVE); NITRITE, URINE AUTO NEGATIVE (NEGATIVE); PROTEIN, URINE AUTO NEGATIVE (NEGATIVE); RBC, URINE AUTO 0 /HPF (0-3); SPECIFIC GRAVITY URINE AUTO 1.013 (1.002-1.035); SQUAMOUS EPITHELIAL CELL UR AU 0 /HPF (0-6); UROBILINOGEN, URINE AUTO 0.2 mg/dL (0.0-2.0); WBC, URINE AUTO 0 /HPF (0-3)
[2022-10-04 10:00] LABS: BASO # 0.1 10^3/uL (0.0-0.2); BASO % 1.1 % (0.0-1.0); EOS # 0.2 10^3/uL (0.0-0.5); EOS % 2.9 % (0.0-3.0); HEMATOCRIT 42.6 % (42.0-52.0); HEMOGLOBIN 14.4 g/dl (13.5-17.5); LYMPH # 1.6 10^3/uL (1.5-5.0); LYMPH % 31.1 % (24.0-44.0); MEAN CORPUSCULAR HEMOGLOBIN 30.2 pg (27.0-33.0); MEAN CORPUSCULAR HGB CONC 33.8 g/dl (32.0-36.5); MEAN CORPUSCULAR VOLUME 89.3 fl (80.0-96.0); MONO # 0.5 10^3/uL (0.0-0.8); MONO % 9.7 % (2.0-8.0); NEUTROPHILS # 2.9 10^3/uL (1.5-8.5); NEUTROPHILS % 54.8 % (36.0-66.0); PLATELET COUNT, AUTOMATED 152 10^3/uL (150-450); RED BLOOD COUNT 4.77 10^6/uL (4.30-6.10); WHITE BLOOD COUNT 5.2 10^3/uL (4.0-10.0)
[2022-10-04 10:11] LABS: INR 1.09; PROTHROMBIN TIME 14.3 SECONDS (12.5-14.5)
[2022-10-04 10:12] LABS: PARTIAL THROMBOPLASTIN TIME 29.1 SECONDS (24.8-34.2)
[2022-10-04 10:27] LABS: BLOOD UREA NITROGEN 14 MG/DL (9-23); CALCIUM LEVEL 8.8 MG/DL (8.3-10.6); CARBON DIOXIDE LEVEL 24 MMOL/L (20-31); CHLORIDE LEVEL 106 MMOL/L (98-107); CREATININE FOR GFR 0.89 MG/DL (0.70-1.30); GLOMERULAR FILTRATION RATE > 60.0 (>42); GLUCOSE, FASTING 118 MG/DL (74-106); POTASSIUM SERUM 4.2 MMOL/L (3.5-5.1); SODIUM LEVEL 138 MMOL/L (136-145)
== END ==
LOC: M LAB 08:55
PROVIDERS: ATTEND Nurse Practitioner Family
DX: Z01.818 Encounter for other preprocedural examination (principal); E11.69 Type 2 diabetes mellitus with other specified complication; I10 Essential (primary) hypertension; Z79.899 Other long term (current) drug therapy

== ENCOUNTER → 2023-02-13 | Outpatient (CLI) | payer MEDICARE, OTHER ==
[2023-02-13 08:44] LABS: CREATININE, URINE 131.8 MG/DL
[2023-02-13 08:44] LABS: CHOLESTEROL RISK RATIO 4.83 (<5); HDL CHOLESTEROL 39.1 MG/DL (>40); LDL CHOLESTEROL 113.9 MG/DL (<100); NON-HDL-C 149.9 MG/DL
[2023-02-13 08:45] LABS: MAU/CREAT RATIO 4.5 MCG/MG (0.0-30.0)
[2023-02-13 09:34] LABS: HEMOGLOBIN A1c 6.2 % (4.0-6.0)
== END ==
LOC: M LAB 07:51
PROVIDERS: ATTEND Registered Nurse
DX: E11.69 Type 2 diabetes mellitus with other specified complication (principal); E78.2 Mixed hyperlipidemia

== ENCOUNTER → 2023-08-25 | Outpatient (CLI) | payer MEDICARE, OTHER ==
[2023-08-25 09:57] LABS: HEMOGLOBIN A1c 6.2 % (4.0-6.0)
[2023-08-25 10:12] LABS: ALBUMIN 4.2 G/DL (3.2-5.2); ALKALINE PHOSPHATASE 59 U/L (46-116); ALT/SGPT 43 U/L (7.0-40); AST/SGOT 22 U/L (<34); BLOOD UREA NITROGEN 14 MG/DL (9-23); CALCIUM LEVEL 8.8 MG/DL (8.3-10.6); CARBON DIOXIDE LEVEL 28 MMOL/L (20-31); CHLORIDE LEVEL 106 MMOL/L (98-107); CHOLESTEROL LEVEL 168 MG/DL (<200); CHOLESTEROL RISK RATIO 3.58 (<5); CREATININE FOR GFR 0.91 MG/DL (0.70-1.30); GLOMERULAR FILTRATION RATE > 60.0 (>42); GLUCOSE, FASTING 116 MG/DL (74-106); HDL CHOLESTEROL 46.9 MG/DL (>40); LDL CHOLESTEROL 92.3 MG/DL (<100); NON-HDL-C 121.1 MG/DL; POTASSIUM SERUM 4.5 MMOL/L (3.5-5.1); SODIUM LEVEL 138 MMOL/L (136-145); TOTAL PROTEIN 6.8 G/DL (5.7-8.2); TRIGLYCERIDES LEVEL 144 MG/DL (<150)
== END ==
LOC: M LAB 08:56
PROVIDERS: ATTEND Registered Nurse
DX: E11.69 Type 2 diabetes mellitus with other specified complication (principal); I10 Essential (primary) hypertension; E78.2 Mixed hyperlipidemia

== ENCOUNTER → 2023-10-30 | Outpatient (CLI) | payer MEDICARE, OTHER ==
[2023-10-30 09:33] LABS: BASO # 0.1 10^3/uL (0.0-0.2); BASO % 1.4 % (0.0-1.0); EOS # 0.2 10^3/uL (0.0-0.5); EOS % 3.6 % (0.0-3.0); HEMATOCRIT 41.3 % (42.0-52.0); HEMOGLOBIN 14.1 g/dl (13.5-17.5); LYMPH # 1.6 10^3/uL (1.5-5.0); LYMPH % 27.1 % (24.0-44.0); MEAN CORPUSCULAR HEMOGLOBIN 31.1 pg (27.0-33.0); MEAN CORPUSCULAR HGB CONC 34.1 g/dl (32.0-36.5); MONO # 0.7 10^3/uL (0.0-0.8); MONO % 11.9 % (2.0-8.0); NEUTROPHILS # 3.3 10^3/uL (1.5-8.5); NEUTROPHILS % 55.8 % (36.0-66.0); PLATELET COUNT, AUTOMATED 143 10^3/uL (150-450); RED BLOOD COUNT 4.54 10^6/uL (4.30-6.10); WHITE BLOOD COUNT 5.8 10^3/uL (4.0-10.0)
[2023-10-30 09:58] LABS: HEMOGLOBIN A1c 6.3 % (4.0-6.0)
[2023-10-30 10:03] LABS: PERCENT SATURATION 25.2 % (19.7-50.0)
[2023-10-30 10:06] LABS: FERRITIN 327.4 NG/ML (10.5-307.3)
== END ==
LOC: M LAB 08:40
PROVIDERS: ATTEND Nurse Practitioner Family
DX: Z01.812 Encounter for preprocedural laboratory examination (principal); M25.569 Pain in unspecified knee; M17.9 Osteoarthritis of knee, unspecified; E11.9 Type 2 diabetes mellitus without complications

== ENCOUNTER → 2023-11-10 | Outpatient (CLI) | payer MEDICARE, OTHER ==
[2023-11-10 09:52] LABS: INR 1.14; PROTHROMBIN TIME 14.3 SECONDS (12.5-14.5)
[2023-11-10 09:59] LABS: ALBUMIN 3.9 G/DL (3.2-5.2); ALKALINE PHOSPHATASE 62 U/L (46-116); ALT/SGPT 46 U/L (7.0-40); AST/SGOT 29 U/L (<34); BILIRUBIN,TOTAL 1.2 MG/DL (0.3-1.2); BLOOD UREA NITROGEN 17 MG/DL (9-23); CALCIUM LEVEL 8.7 MG/DL (8.3-10.6); CARBON DIOXIDE LEVEL 27 MMOL/L (20-31); CHLORIDE LEVEL 103 MMOL/L (98-107); CREATININE FOR GFR 0.86 MG/DL (0.70-1.30); GLOMERULAR FILTRATION RATE > 60.0 (>42); GLUCOSE, FASTING 140 MG/DL (74-106); POTASSIUM SERUM 4.2 MMOL/L (3.5-5.1); SODIUM LEVEL 136 MMOL/L (136-145); TOTAL PROTEIN 6.6 G/DL (5.7-8.2)
== END ==
LOC: M LAB 08:56
PROVIDERS: ATTEND Registered Nurse
DX: Z01.818 Encounter for other preprocedural examination (principal); I10 Essential (primary) hypertension; Z86.73 Personal history of transient ischemic attack (TIA), and cerebral infarction without residual deficits

== ENCOUNTER → 2024-05-06 | Outpatient (CLI) | payer MEDICARE, OTHER ==
[2024-05-06 10:58] LABS: MALB URINE SIEMENS < 3.0 MG/L; MAU/CREAT RATIO 1.5 MCG/MG (0.0-30.0)
[2024-05-06 10:58] LABS: CHOLESTEROL RISK RATIO 2.25 (<5); LDL CHOLESTEROL 11.8 MG/DL (<100)
[2024-05-06 11:18] LABS: HEMOGLOBIN A1c 6.4 % (4.0-6.0)
== END ==
LOC: M LAB 09:47
PROVIDERS: ATTEND Registered Nurse
DX: E11.69 Type 2 diabetes mellitus with other specified complication (principal); E78.2 Mixed hyperlipidemia

== ENCOUNTER → 2024-08-25 | Outpatient (CLI) | payer MEDICARE, OTHER | LOC: M LAB 16:02 | PROVIDERS: ATTEND Physician Assistant | DX: Z12.5 Encounter for screening for malignant neoplasm of prostate (principal) | CPT/HCPCS: 36415; G0103 ==

== ENCOUNTER → 2024-12-20 | Outpatient (CLI) | payer MEDICARE, OTHER ==
[~2024-12-20] MED LIST changes: -FLOM0.4C39 PO; +TAMS-18 PO
[2024-12-20 09:48] LABS: BASO # 0.1 10^3/uL (0.0-0.2); BASO % 1.8 % (0.0-1.0); EOS # 0.2 10^3/uL (0.0-0.5); EOS % 4.9 % (0.0-3.0); HEMATOCRIT 42.6 % (42.0-52.0); HEMOGLOBIN 14.6 g/dl (13.5-17.5); LYMPH # 1.6 10^3/uL (1.5-5.0); LYMPH % 32.3 % (24.0-44.0); MEAN CORPUSCULAR HEMOGLOBIN 30.7 pg (27.0-33.0); MEAN CORPUSCULAR HGB CONC 34.3 g/dl (32.0-36.5); MEAN CORPUSCULAR VOLUME 89.5 fl (80.0-96.0); MONO # 0.5 10^3/uL (0.0-0.8); MONO % 10.2 % (2.0-8.0); NEUTROPHILS # 2.5 10^3/uL (1.5-8.5); NEUTROPHILS % 50.4 % (36.0-66.0); PLATELET COUNT, AUTOMATED 156 10^3/uL (150-450); RED BLOOD COUNT 4.76 10^6/uL (4.30-6.10); WHITE BLOOD COUNT 4.9 10^3/uL (4.0-10.0)
[2024-12-20 10:25] LABS: ALBUMIN 4.1 G/DL (3.2-5.2); BILIRUBIN,TOTAL 0.8 MG/DL (0.3-1.2); CALCIUM LEVEL 8.8 MG/DL (8.3-10.6); CREATININE FOR GFR 0.93 MG/DL (0.70-1.30); GLOMERULAR FILTRATION RATE 86.7 (>42); TOTAL PROTEIN 6.8 G/DL (5.7-8.2)
[2024-12-20 11:12] LABS: HEMOGLOBIN A1c 6.3 % (4.0-6.0)
[2024-12-20 15:38] LABS: CHOLESTEROL RISK RATIO 2.79 (<5); HDL CHOLESTEROL 38.6 MG/DL (>40); LDL CHOLESTEROL 26.2 MG/DL (<100); NON-HDL-C 69.4 MG/DL
== END ==
LOC: M LAB 07:51
PROVIDERS: ATTEND Registered Nurse
DX: E11.69 Type 2 diabetes mellitus with other specified complication (principal); I10 Essential (primary) hypertension

== ENCOUNTER → 2025-06-28 | Outpatient (CLI) | payer MEDICARE, OTHER ==
[~2025-06-28] MED LIST changes: +ACET-1592 PO; -ACET1TAB37 PO
[2025-06-28 11:58] LABS: BASO # 0.1 10^3/uL (0.0-0.2); BASO % 1.0 % (0.0-1.0); EOS # 0.2 10^3/uL (0.0-0.5); EOS % 3.2 % (0.0-3.0); LYMPH # 0.7 10^3/uL (1.5-5.0); LYMPH % 12.6 % (24.0-44.0); MONO # 0.7 10^3/uL (0.0-0.8); MONO % 11.8 % (2.0-8.0); NEUTROPHILS # 4.2 10^3/uL (1.5-8.5); NEUTROPHILS % 71.2 % (36.0-66.0); PLATELET COUNT, AUTOMATED 138 10^3/uL (150-450)
[2025-06-28 12:14] LABS: CREATININE, URINE 148.0 MG/DL
[2025-06-28 12:15] LABS: ALT/SGPT 45.0 U/L (7.0-40); AST/SGOT 28.0 U/L (<34); CALCIUM LEVEL 8.8 MG/DL (8.3-10.6); CARBON DIOXIDE LEVEL 27.0 MMOL/L (20-31); CHLORIDE LEVEL 103.0 MMOL/L (98-107); CHOLESTEROL LEVEL 162.0 MG/DL (<200); CHOLESTEROL RISK RATIO 3.52 (<5); CREATININE FOR GFR 0.94 MG/DL (0.70-1.30); GLOMERULAR FILTRATION RATE 85.6 (>42); LDL CHOLESTEROL 70.7 MG/DL (<100); MALB URINE SIEMENS 7.0 MG/L; MAU/CREAT RATIO 4.7 MCG/MG (0.0-30.0); NON-HDL-C 116.1 MG/DL; POTASSIUM SERUM 4.4 MMOL/L (3.5-5.1); SODIUM LEVEL 138.0 MMOL/L (136-145); TRIGLYCERIDES LEVEL 227.0 MG/DL (<150)
[2025-06-28 12:37] LABS: ESTIMATED AVERAGE GLUCOSE 131.0 MG/DL (60-110)
== END ==
LOC: M LAB 10:36
PROVIDERS: ATTEND Registered Nurse
DX: E11.69 Type 2 diabetes mellitus with other specified complication (principal); E78.2 Mixed hyperlipidemia